=== PATIENT | female | born 1960 | race Hispanic/Latino ===

== ENCOUNTER 2016-10-27 09:45 | Outpatient (CLI) | payer OTHER ==
--- NOTE | 2016-10-27 11:21 | XRay Report ---
AP AND LATERAL CERVICAL SPINE: History: Neck pain, arthritis. The vertebral bodies are well mineralized and normal in alignment and vertebral height with well preserved interspace distances. The visualized portions of the posterior elements are normal. Borderline to mild osteopenia is suspected. IMPRESSION: Mild osteopenia, otherwise, unremarkable cervical spine films.
--- NOTE | 2016-10-27 11:22 | XRay Report ---
LUMBOSACRAL SPINE, 3 VIEWS: History: Back pain Findings: Borderline bone mineralization. There is normal height and alignment of lumbar vertebra. The posterior elements are appropriate relationship. Mild facet arthropathy at L3-4, L4-5 and L5-S1 is noted. No bone lesion or acute injury is appreciated. Impression: Mild lumbar spondylosis. Borderline to mild osteopenia.
== END 2016-10-27 09:46 | disposition home or self-care (01) ==
LOC: XRAY 09:45
PROVIDERS: ATTEND Internal Medicine
DX: M47.896 Other spondylosis, lumbar region (principal); M12.88 Other specific arthropathies, not elsewhere classified, other specified site; M85.88 Other specified disorders of bone density and structure, other site; M47.892 Other spondylosis, cervical region
CPT/HCPCS: 72040; 72100